=== PATIENT | male | born 1995 | race African-American/Black ===

== ENCOUNTER 2017-10-18 11:56 | Emergency (ER) | payer OTHER ==
[2017-10-18 12:06] VITALS: BP 113/70
[2017-10-18] MEDS ORDERED: CYCLOBENZAPRINE HCL 10 MG TABLET PO ONE (14:20)
[2017-10-18] MEDS ORDERED: IBUPROFEN 800 MG TABLET PO ONE (14:20)
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
== END 2017-10-18 14:32 | disposition home or self-care (01) ==
LOC: ER 11:56
DX: S16.1XXA Strain of muscle, fascia and tendon at neck level, initial encounter (principal); V43.62XA Car passenger injured in collision with other type car in traffic accident, initial encounter
CPT/HCPCS: 99283